=== PATIENT | male | born 1960 | race Asian ===

== ENCOUNTER → 2016-06-24 09:52 | Outpatient (CLI) | payer BC | END | disposition home or self-care (01) | LOC: D.CT 09:52 | DX: R19.5 Other fecal abnormalities (principal) ==

== ENCOUNTER 2016-08-13 05:14 | Day surgery (SDC) | payer BC ==
[~2016-08-13] VITALS: Ht 160 cm; Wt 72.6 kg
--- NOTE | ~2016-08-13 | OP ---
PATIENT NAME: DILLON FATIMA MEDICAL RECORD: [id number] :56 LOCATION:D.OPS ADMISSION DATE: SURGEON: GILMA GONSALES MD DATE OF OPERATION: 08/13/2016 PRINCIPAL DIAGNOSIS: Rectal polyp with high-grade dysplasia. POSTOPERATIVE DIAGNOSIS: Rectal polyp with high-grade dysplasia. PROCEDURES: 1. Total colonoscopy to cecum. 2. Polypectomy, which was a piecemeal polypectomy with epinephrine submucosal injection through a sclerotherapy needle, piecemeal snare polypectomy, hot biopsy forceps polypectomies, numerous; deployment of 3 endoscopic clips for hemostasis and also to close the defect. 3. Endoscopic tattooing distal to the polyp with a sclerotherapy needle. 4. The argon plasma director of hotel operations was utilized. SURGEON: Gilma Gonsales MD. ENTERPRISE INTEGRATION DEVELOPER: None. BLOOD LOSS: Minimal. ANESTHESIA: General. OPERATIVE COURSE: The patient was conveyed to the operating room electively on 08/13/2016. General anesthesia was induced by the anesthesia staff. The patient was placed in the Anguiano position. A digital rectal examination was performed. A colonoscope was inserted through the anus. It was easily advanced to the cecum. Upon withdrawal, I irrigated and aspirated extensively. I dragged the folds. A combination of direct imaging and narrow band imaging was utilized. The pullback was greater than a 25-minute pullback. In the rectum, at 10 cm, a polypoid mass was noted. I advanced a sclerotherapy needle. At 4 sites around the mass, I performed a submucosal injection of epinephrine. I did obtain a good lift of the polyp from the underlying tissue, which is somewhat favorable and that this may not represent an invasive malignancy. The epinephrine was also utilized for hemostasis. I advanced the snare device. A piecemeal snare polypectomy was performed. Portions of the polyp were suctioned and brought out through the anus. The portions were caught in a polyp trap. Additional biopsies were performed, which were cold endoscopic biopsies. Some hot biopsies were performed as well. There was some residual polypoid tissue at the base of the polyp and this was ablated utilizing the argon plasma director of hotel operations with the right colon setting in the forced mode. Once the polyp had been thoroughly ablated, I elected to deploy some endoscopic clips for hemostasis, also because I had to go deep, I wanted to close any potential defect that could become a full thickness defect. Three endoscopic clips were then deployed in a row. OPERATIVE REPORT [id number] DILLON FATIMA In case the mass represents a malignancy, it will need to be eventually resected. I advanced an endoscopic sclerotherapy needle and then utilizing 5 cc of Leesa ink, performed tattooing just distal to the polyp. The endoscope was then withdrawn under direct vision. I will see the patient in my office in 2-3 weeks. TRANSINT:[id number] Voice Confirmation ID: [id number] DOCUMENT ID: [id number] GILMA GONSALES MD CC: KALYANI ROY MD and GILMA SANTOS DO [id number] DICTATION DATE: 08/13/16951 PHARMACEUTICAL SALES SPECIALIST: 08/13/16 1300 [facility] 08/13/16 [facility] [address] [place] [address]
--- NOTE | ~2016-08-13 | HP ---
PATIENT: DILLON FATIMA MEDICAL RECORD: [id number] ACCOUNT: [id number] LOCATION:[facility] : 56 ADMISSION DATE: 08/13/16 HISTORY AND PHYSICAL EXAMINATION CHIEF COMPLAINT: Rectal polyp. HISTORY OF PRESENT ILLNESS: The patient has a rectal polyp with high-grade dysplasia. I am going to plan for an attempted endoscopic resection. I told the patient that if this represents an invasive malignancy, the patient will require neoadjuvant chemotherapy and radiation and then, eventually resection. However, for now, we need to resect the entire mass in order to obtain an adequate excisional biopsy. The risks, possible complications and alternatives to procedure were explained to the patient. He elects to proceed. This included the risk of bleeding requiring an emergency reoperation as well as endoscopic perforation and the need for colostomy. ALLERGIES: No known drug allergies. HOME MEDICATIONS: Lisinopril. SOCIAL HISTORY: A former smoker. PAST MEDICAL AND SURGICAL HISTORY: Hypertension. REVIEW OF SYSTEMS: Negative for CVA or seizures. Negative for diabetes or thyroid problems. Negative for renal disease or hepatitis. PHYSICAL EXAMINATION: GENERAL: The patient does not appear acutely ill. He does not appear chronically ill. VITAL SIGNS: Reviewed. HEAD: External ears appear normal. EYES: Extraocular movements are intact. NECK: Trachea is midline. CHEST: No intercostal retractions. PULMONARY: Nonlabored, no stridor. ABDOMEN: Nontender. IMPRESSION: Rectal polyp with high-grade dysplasia. PLAN: Colonoscopy and polypectomy utilizing the argon plasma computer support specialist instructor and likely a multimodality resection of this polypoid mass. TRANSINT:[id number] Voice Confirmation ID: [id number] DOCUMENT ID: [id number] HISTORY AND PHYSICAL [id number] DOGILMA BELLE MD CC: KALYNAI ROY MD and GILMA SANTOS DO [id number] DICTATION DATE: 08/13/16 0954 SIX COLOR PRESS OPERATOR: 08/13/16 1026 [facility] 08/13/[address] [facility] [address] [place] [id number]
[~2016-08-13 05:14] MED LIST: LISINOPRIL10 MG PO
[2016-08-13 07:06] LABS: HEMATOCRIT 46.8 % (42.0-54.0); HEMOGLOBIN 15.7 g/dL (13.5-17.5); MCH 32.2 pg (26.0-34.0); MCHC 33.5 g/dL (31.0-37.0); MCV 95.9 fL (80.0-100.0); MEAN PLATELET VOLUME 9.6 fL (7.4-10.4); RBC 4.88 10x6/uL (4.20-6.10); RDW 12.8 % (11.5-14.5); WBC 4.5 10x3/uL (4.8-10.8)
[2016-08-13 07:15] VITALS: BP 109/78; Ht 160 cm; Wt 72.6 kg
--- NOTE | 2016-08-13 08:06 | NUR ---
PATIENT LEFT ON OR STRETCHER AND POSITIONED, SAFETY MESAURES TAKEN PRESSURE POINTS PADDED AND SECURED, ALETHEA.
== END 2016-08-13 11:15 | disposition home or self-care (01) ==
LOC: D.OPS 05:14 → D.PAN 08:00 → D.OPS 08:00 → D.PAN 09:00 → D.OPS 09:00
PROVIDERS: Anesthesiology
DX: K62.1 Rectal polyp (principal); Z87.891 Personal history of nicotine dependence; I10 Essential (primary) hypertension; Z01.812 Encounter for preprocedural laboratory examination

== ENCOUNTER 2017-10-02 08:30 | Day surgery (SDC) | payer BC ==
[2017-10-01 10:27] LABS: HEMATOCRIT 46.8 % (42.0-54.0); HEMOGLOBIN 15.9 g/dL (13.5-17.5); MCH 32.6 pg (26.0-34.0); MCV 95.9 fL (80.0-100.0); MEAN PLATELET VOLUME 8.9 fL (7.4-10.4); RBC 4.88 10x6/uL (4.20-6.10); RDW 12.6 % (11.5-14.5); WBC 5.4 10x3/uL (4.8-10.8)
[~2017-10-02] VITALS: Ht 167.6 cm; Wt 71.2 kg
--- NOTE | ~2017-10-02 | OP ---
PATIENT NAME: DILLON FATIMA MEDICAL RECORD: [id number] :56 LOCATION:D.OPS ADMISSION DATE: SURGEON: GILMA GONSALES MD DATE OF OPERATION: 10/02/2017 PREOPERATIVE DIAGNOSES: History of a rectal polyp with high-grade dysplasia. POSTOPERATIVE DIAGNOSES: History of a rectal polyp with high-grade dysplasia with apparent complete regrowth of the polypoid mass at 10 cm, very worrisome for an occult malignancy, fading of the previously placed submucosal tattoo. PROCEDURE: 1. Flexible proctoscopy. A submucosal epinephrine injection. 2. Piecemeal snare polypectomy. 3. Treatment of the polypoid base with the argon plasma vineyard tender. 4. Placement of a row of 4 endoscopic clips for hemostasis and reinforcement of the excised site. 5. Endoscopic tattooing proximal and distal to the mass. SURGEON: Gilma Gonsales MD DRUG DEPARTMENT WORKER: None. BLOOD LOSS: Minimal. ANESTHESIA: General. COMPLICATIONS: None. The risks, possible complications and alternatives to procedure were explained to the patient. He elects to proceed. The endoscopic findings are very worrisome for an occult malignancy. Portions of the base of the polyp were firm. Despite the firmness at the base of the polyp, we did get a good lift with submucosal epinephrine pillow. I am concerned that this patient may require referral to an oncologist and perhaps preoperative chemotherapy and radiation and resection versus transanal resection of the polyp, which extends above the most distal valve of [place]. OPERATIVE COURSE: The patient was conveyed to the operating room electively on 10/02/2017. General anesthesia was induced by the anesthesia staff. The patient was placed in the Anguiano position. A digital rectal examination was performed. A colonoscope was inserted through the anus. It was easily advanced to the top of the rectum. I then withdrew the endoscope. I was able to get a lot of good photographs of the polypoid mass. The tattoo had faded. It had been placed distal to the prior resection. A scar from the prior resection could be seen easily. I advanced a sclerotherapy needle. At 2 sites underneath the polyp, I injected epinephrine and was able to create a good lift on the polyp, which was somewhat encouraging. There was a nice pillow of fluid underneath the polypoid mass. Utilizing the snare, I performed a piecemeal snare polypectomy, removing about 75% of the polyp with this polypectomy technique. The portions of the polyp were then retrieved. This was done with an endoscopic retrieval net. I then readvanced the endoscope. The multiple cold endoscopic biopsies were performed. OPERATIVE REPORT [id number] DILLON FATIMA This removed about another 10% of the polyp. Some of the polyp centrally was very firm, which is somewhat worrisome for an underlying malignancy. I then treated any residual polypoid tissue that I could identify with the argon plasma vineyard tender. I had to go deep at several sites that were quite indurated and I was worried about an endoscopic perforation or infection and for this reason, I elected to place a series of clips for hemostasis as well as to close these areas which were deep biopsies. Four endoscopic clips were deployed in a row. I then advanced a sclerotherapy needle. Proximal and distal to the site of the polypectomy, I injected 3 cc of Leesa ink at both sites into the submucosal tissues as a tattoo. The endoscope was then withdrawn under direct vision. I saw the patient later in the outpatient department and informed him and his of my concern about the rapid regrowth of this polypoid mass and the probable need for a referral to an oncologist once we receive the results of the biopsies from the pathologist. TRANSINT:[id number] Voice Confirmation ID: [id number] DOCUMENT ID: [id number] GILMA GONSALES MD at 1816 CC: KALYANI ROY MD and GILMA SANTOS [id number] DICTATION DATE: 10/03/17 1001 MEDICAL RESEARCHER: 10/03/17 1339 [facility] 10/02/17 [facility] [address] [place] [address]
[2017-10-02 09:19] VITALS: BP 126/87; Ht 167.6 cm; Wt 71.2 kg
== END 2017-10-02 18:46 | disposition home or self-care (01) ==
LOC: D.OPS 08:30 → D.PAN 09:00 → D.OPS 09:00
PROVIDERS: Anesthesiology
DX: D12.8 Benign neoplasm of rectum (principal); Z01.812 Encounter for preprocedural laboratory examination

== ENCOUNTER → 2017-12-02 17:19 | Outpatient (CLI) | payer BC ==
[2017-10-02 09:19] VITALS: BMI 25.4
== END | disposition home or self-care (01) ==
LOC: D.LABREF 17:19
DX: E78.5 Hyperlipidemia, unspecified (principal)

== ENCOUNTER → 2017-12-28 08:31 | Outpatient (CLI) | payer BC ==
[2017-10-02 09:19] VITALS: BMI 25.4
--- NOTE | ~2017-12-28 | EC ---
PATIENT:DILLON FATIMA DATE OF SERVICE: 12/28/17 SEX: M MEDICAL RECORD: [id number] DATE OF : 56 LOCATION:[facility] AGE OF PATIENT: 57 ADMISSION DATE: 12/28/17 REFERRING PHYSICIAN: INTERPRETING PHYSICIAN: NEREIDA CEVALLOS MD ECHOCARDIOGRAM REPORT ECHO CHARGES 4 ECHO COMPLETE Date: 12/28/17 CLINICAL DIAGNOSIS: CP/DYSPNEA/HTN/PALPITATIONS ECHOCARDIOGRAPHIC MEASUREMENTS (adult normal given) AC root (d.<3.7cm) 3.4 cm LV Septum d (<1.2 cm> 1.0 cm Valve Excursion 2.0 cm LV Septum (systole) 1.4 cm Left Atria (s.<4.0cm> 2.7 cm LVPW d(<1.2cm) 1.2 cm RV (d.<2.3cm) 2.6 cm LVPW (sytole) 1.8 cm LV diastole(<5.6CM) 5.0 cm MV E-F(>70mm/sec) cm LV systole 3.1 cm LVOT Diameter 2.0 cm MV exc.(>10mm) cm Est.ejection fraction (50-75%) % DOPPLER: LVIT cm/sec A 50.0 cm/sec E 70.0 cm/sec LA cm/sec RVSP 27.3 mmHg LVOT 95.0 cm/sec AOP1/2T m/s Asc. Ao 110 cm/sec RVOT 64.0 cm/sec RA cm/sec PA 89.0 cm/sec AV Gradient Peak 4.9 mmHg AV Mean 2.3 mmHg AV Area 2.1 cm MV Gradient Peak 3.3 mmHg MV Mean 1.1 mmHg MV Area cm COMMENTS: Government Minister: Voilette CHANEY SWINK Money Counter: Edie Cevallos TAPE# PACS Pericardial Effusion N DATE OF SERVICE: PROCEDURE: Transthoracic echocardiogram. FINDINGS: 1. Left ventricle has mild left ventricular hypertrophy. Inflow characteristics are normal. Ejection fraction is 55% to 60%. 2. The left atrium is normal. 3. Aortic valve is normal. 4. The mitral valve has mild mitral regurgitation. ECHOCARDIOGRAM REPORT [id number] DILLON FATIMA 5. The tricuspid valve has mild tricuspid regurgitation. RVSP is normal. 6. The right ventricle and right atrium are normal. 7. The pulmonic valve is normal. There is no effusion. IVC collapses and is normal. CONCLUSIONS: This is a normal echocardiogram for patient's stated age. TRANSINT:[id number] Voice Confirmation ID: [id number] DOCUMENT ID: [id number] NEREIDA CEVALLOS MD CC: [id number] DICTATION DATE: 12/29/1745 MANUFACTURING TECHNOLOGY ANALYST: 12/29/1753 [facility] CLI 12/28/17 [facility] [address] [place] [address]
== END | disposition home or self-care (01) ==
LOC: D.ECHO 08:31
DX: R07.9 Chest pain, unspecified (principal); R06.00 Dyspnea, unspecified; I10 Essential (primary) hypertension; R00.2 Palpitations

== ENCOUNTER → 2019-04-29 08:46 | Outpatient (CLI) | payer BC ==
[2017-10-02 09:19] VITALS: BMI 25.4
== END | disposition home or self-care (01) ==
LOC: D.HCCECHO 08:46
PROVIDERS: ATTEND Internal Medicine Interventional Cardiology
DX: I10 Essential (primary) hypertension (principal)